=== PATIENT | male | born 1940 | race Caucasian/White ===

== ENCOUNTER → 2018-07-12 09:25 | Outpatient (CLI) | payer MEDICARE, BC ==
--- NOTE | ~2018-07-12 | EC ---
PATIENT:COLTON NUNN DATE OF SERVICE: 07/12/18 SEX: M MEDICAL RECORD: [id number] DATE OF : 42 LOCATION:[facility] AGE OF PATIENT: 78 ADMISSION DATE: 07/12/18 REFERRING PHYSICIAN: INTERPRETING PHYSICIAN: INDIO SEBASTIAN MD ECHOCARDIOGRAM REPORT ECHO CHARGES 4 ECHO COMPLETE Date: 07/12/18 CLINICAL DIAGNOSIS: HTN HX OF CAD/MURMUR/TR ECHOCARDIOGRAPHIC MEASUREMENTS (adult normal given) AC root (d.<3.7cm) 3.9 cm LV Septum d (<1.2 cm> 1.1 cm Valve Excursion 1.8 cm LV Septum (systole) 1.6 cm Left Atria (s.<4.0cm> 3.6 cm LVPW d(<1.2cm) 1.5 cm RV (d.<2.3cm) 3.9 cm LVPW (sytole) 2.0 cm LV diastole(<5.6CM) 4.6 cm MV E-F(>70mm/sec) cm LV systole 2.4 cm LVOT Diameter 1.8 cm MV exc.(>10mm) cm Est.ejection fraction (50-75%) % DOPPLER: LVIT cm/sec A 88.0 cm/sec E 99.0 cm/sec LA cm/sec RVSP 33 mmHg LVOT 87 cm/sec AOP1/2T m/s Asc. Ao 136 cm/sec RVOT 75 cm/sec RA cm/sec PA 96 cm/sec AV Gradient Peak 7.30 mmHg AV Mean 3.82 mmHg AV Area 1.7 cm MV Gradient Peak 3.60 mmHg MV Mean 1.34 mmHg MV Area cm COMMENTS: [employer] Emergency Care Technician: Sri PIERRE Binding Printer: 3 Dr. Marie TAPE# PACS Pericardial Effusion N DATE OF SERVICE: 07/12/2018 Adequate 2-D echo, color-flow and spectral Doppler, and M-mode. No LVH. LV internal dimensions are normal. Wall motion is normal. EF is 55%. Aortic valve has sclerosis without stenosis by Doppler interrogation. Left atrium is normal. Mitral valve shows no prolapse. Trace MR. Right-sided chambers are grossly normal. Mild TR. TRANSINT:[id number] Voice Confirmation ID: [id number] DOCUMENT ID: [id number] ECHOCARDIOGRAM REPORT [id number] COLTON NUNN GREGORY A MD CC: [id number] DICTATION DATE: 07/12/18 1545 SONOGRAPHY TECHNICIAN: 07/12/18 1650 REG [place] [id number] [place] [id number]
== END | disposition home or self-care (01) ==
LOC: D.HCCARDIO 09:25
PROVIDERS: ATTEND Internal Medicine Interventional Cardiology
DX: I10 Essential (primary) hypertension (principal)